=== PATIENT | male | born 1955 | race Caucasian/White ===

== ENCOUNTER 2016-11-08 10:54 | Emergency (ER) | payer MEDICAID ==
[2015-01-21 09:14] VITALS: BMI 29.3
[~2016-11-08 10:54] MED LIST: BAYER CHEWABLE81 MG PO; CAPOTEN12.5 MG PO; CAPTOPRIL50 MG PO; LEVAQUIN500 MG PO; LEXAPRO20 MG PO; METOPROLOL TAR100 M1 PO; PLAVIX75 MG PO; TOPROL XL25 MG
[2016-11-08 12:40] LABS: BASOPHILS 0.3 % (0-2); HEMATOCRIT 35.4 % (42.0-54.0); HEMOGLOBIN 11.7 g/dL (13.5-17.5); IMMATURE GRANULOCYTES 0.2 % (0-5); LYMPHOCYTES 8.5 % (15-50); MCH 30.5 pg (26.0-34.0); MCHC 33.1 g/dL (31.0-37.0); MCV 92.4 fL (80.0-100.0); MEAN PLATELET VOLUME 9.9 fL (7.4-10.4); MONOCYTES 7.9 % (2-11); NEUTROPHILS 82.1 % (40-80); PLATELET COUNT 224 10x3/uL (130-400); RBC 3.83 10x6/uL (4.20-6.10); RDW 13.3 % (11.5-14.5); WBC 11.2 10x3/uL (4.8-10.8)
[2016-11-08 13:04] LABS: ALBUMIN 3.6 g/dL (3.4-5.0); ANION GAP 9.8 mmol/L (8-16); BILIRUBIN - TOTAL 0.68 mg/dL (0.2-1.3); CALCIUM 8.7 mg/dL (8.5-10.1); CARBON DIOXIDE 28.1 mmol/L (21.0-32.0); CREATININE - SERUM 1.1 mg/dL (0.6-1.3); POTASSIUM - SERUM 4.9 mmol/L (3.5-5.1); PROTEIN - SERUM 6.9 g/dL (6.4-8.2)
[2016-11-08 13:28] LABS: TROPONIN-I 1.352 ng/mL (0.000-0.060)
== END 2016-11-08 15:20 ==
LOC: D.ER 10:54
PROVIDERS: Emergency Medicine
DX: R55 Syncope and collapse (principal); I95.1 Orthostatic hypotension; I46.9 Cardiac arrest, cause unspecified; I10 Essential (primary) hypertension; F17.200 Nicotine dependence, unspecified, uncomplicated